=== PATIENT | male | born 2000 | race Caucasian/White ===

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

== ENCOUNTER 2021-11-25 11:10 | Emergency (ER) | payer SELFPAY ==
[~2021-11-25] VITALS: Ht 170.2 cm; Wt 70.5 kg
[2021-11-25] MEDS ORDERED: AZITHROMYCIN 500 MG TABLET PO ONE (12:15)
[2021-11-25] MEDS ORDERED: CefTRIAXone SODIUM 1 GM/VIAL IM ONE (12:15)
[2021-11-25] MEDS ORDERED: LIDOCAINE/PF 1% 2 ML VIAL IM ONE (12:15)
[2021-11-25 12:22] LABS: APPEARANCE,URINE HAZY (CLEAR); BILIRUBIN,URINE NEGATIVE (NEGATIVE); GLUCOSE, URINE (UA) NEGATIVE (NEGATIVE); KETONES,URINE NEGATIVE (NEGATIVE); LEUKOCYTE ESTERASE ,URINE LARGE (NEGATIVE); NITRATE,URINE NEGATIVE (NEGATIVE); OCCULT BLOOD,URINE NEGATIVE (NEGATIVE); PH,URINE 6.5 (5.0-8.0); PROTEIN,URINE TRACE mg/dL (NEGATIVE); SPECIFIC GRAVITIY, URINE 1.034 (1.003-1.030); UROBILINOGEN,URINE <=1.0 mg/dL (<=1.0)
[2021-11-25 12:39] LABS: BACTERIA,URINE Few /HPF (None Seen); RBC,URINE None Seen /HPF (0-2); WBC,URINE 51-100 /HPF (0-5)
[2021-11-25 13:05] VITALS: BP 115/67
== END 2021-11-25 13:21 | disposition home or self-care (01) ==
LOC: EMS 11:18
DX: A64 Unspecified sexually transmitted disease (principal); F19.90 Other psychoactive substance use, unspecified, uncomplicated
CPT/HCPCS: 99283; 81001; 87086; 87491; 87591; 96372; J0696; J3490; Q9967